=== PATIENT | female | born 1940 | race Caucasian/White ===

== ENCOUNTER 2018-03-25 09:22 | Emergency (ER) | payer OTHER, MEDICARE ==
[2018-03-25 09:39] VITALS: TEMP 98.1; BMI 39.6
--- NOTE | 2018-03-25 09:42 | PDOC ---
History of Present Illness - General Chief Complaint: Shortness of Breath Stated Complaint: SOB (PCP SENT) Time Seen by Provider: 03/25/18 09:42 Past History - Past Medical History Allergies/Adverse Reactions: Allergies Allergy/AdvReac Type Severity Reaction Status Date / Time No Known Allergies Allergy Verified 03/25/18 09:33 Home Medications: Ambulatory Orders Ferrous Sulfate [Feosol] 325 mg PO DAILY #0 ud 08/26/13 Metoprolol Succinate [Toprol XL -] 50 mg PO DAILY #0 tab.sr.24h 08/26/13 Amlodipine Besylate [Norvasc -] 5 mg PO DAILY 06/09/14 Biotin 5,000 mcg PO DAILY 06/09/14 Lutein 6 mg PO DAILY 06/09/14 Magnesium 500 mg PO DAILY 06/09/14 Potassium Chloride [K-Dur] 10 meq PO DAILY 06/09/14 metFORMIN HCL [Glucophage -] 500 mg PO DAILY 06/09/14 Anemia: Yes (during chemo) Asthma: No Cancer: Yes (LUNG AND VULVA) Cardiac Disorders: No CVA: No COPD: No CHF: No DVT: No Dementia: No Diabetes: Yes GI Disorders: No Disorders: Yes (ACUTE ON CHRONIC KIDNEY DISEASE) HTN: Yes Hypercholesterolemia: No Liver Disease: No Seizures: No Thyroid Disease: No Lung CA: Yes - Surgical History Abdominal Surgery: No Appendectomy: No Cardiac Surgery: No Cholecystectomy: No Lung Surgery: Yes (LUNG CA,THORACENTESIS) Neurologic Surgery: No Orthopedic Surgery: No - Immunization History Td Vaccination: Yes TDAP Vaccination: No Immunization Up to Date: Yes - Suicide/Smoking/Psychosocial Hx Smoking Status: Yes Smoking History: Former smoker Years of Tobacco Use: 0 Have you smoked in the past 12 months: No Number of Cigarettes Smoked Daily: 0 If you are a former smoker, when did you quit?: 2000 Cigars Per Day: 0 Information on smoking cessation initiated: No Hx Alcohol Use: No Drug/Substance Use Hx: No Substance Use Type: None Hx Substance Use Treatment: No *Physical Exam - Vital Signs Last Vital Signs Temp Pulse Resp BP Pulse Ox 98.1 F 82 18 150/90 97 03/25/18 09:33 03/25/18 09:33 03/25/18 09:33 03/25/18 09:33 03/25/18 09:33
--- NOTE | 2018-03-25 09:46 | PDOC ---
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 Patient reports acute Gregg x 1 week. Resolved with rest. BL LE swelling for 10+ years. Typically sleeps with 2 pillows at night for many years. Denies associated complaints. Denies F/C, cough, hemoptysis, PND, leg pain, palpitations, diaphoresis, weight loss, night sweats, back pain, N/V, CP, abdominal pain, diarrhea, constipation, urinary complaints, weakness, lightheadedness, sensory changes. Diagnosed with lung cancer ( 2004). No longer receives yearly CT chest. Does not know if ca. in remission. Apt. with Pulmonology Dr. Rodas 05/02/18 PMHx: as noted above. Denies h/o ACS, IN, stent placement, CABG, abnml stress test ( does not recall last stress test ). ROS: as noted above SHx: Tobacco cessation 10 years ago. Denies Etoh, IVDA. Denies recent travel, surgery, prolonged immobilization, or hormonal therapy. PMD: Cesar Allergies: NKDA Past History - Past Medical History Allergies/Adverse Reactions: Allergies Allergy/AdvReac Type Severity Reaction Status Date / Time No Known Allergies Allergy Verified 03/25/18 09:33 Home Medications: Ambulatory Orders Ferrous Sulfate [Feosol] 325 mg PO DAILY #0 ud 08/26/13 Metoprolol Succinate [Toprol XL -] 50 mg PO DAILY #0 tab.sr.24h 08/26/13 Amlodipine Besylate [Norvasc -] 5 mg PO DAILY 06/09/14 Biotin 5,000 mcg PO DAILY 06/09/14 Lutein 6 mg PO DAILY 06/09/14 Magnesium 500 mg PO DAILY 06/09/14 Potassium Chloride [K-Dur] 10 meq PO DAILY 06/09/14 metFORMIN HCL [Glucophage -] 500 mg PO DAILY 06/09/14 Anemia: Yes (during chemo) Asthma: No Cancer: Yes (LUNG AND VULVA) Cardiac Disorders: No CVA: No COPD: No CHF: No DVT: No Dementia: No Diabetes: Yes GI Disorders: No Disorders: Yes (ACUTE ON CHRONIC KIDNEY DISEASE) HTN: Yes Hypercholesterolemia: No Liver Disease: No Seizures: No Thyroid Disease: No Lung CA: Yes - Surgical History Abdominal Surgery: No Appendectomy: No Cardiac Surgery: No Cholecystectomy: No Lung Surgery: Yes (LUNG CA,THORACENTESIS) Neurologic Surgery: No Orthopedic Surgery: No - Immunization History Td Vaccination: Yes TDAP Vaccination: No Immunization Up to Date: Yes - Suicide/Smoking/Psychosocial Hx Smoking Status: Yes Smoking History: Former smoker Years of Tobacco Use: 0 Have you smoked in the past 12 months: No Number of Cigarettes Smoked Daily: 0 If you are a former smoker, when did you quit?: 2000 Cigars Per Day: 0 Information on smoking cessation initiated: No Hx Alcohol Use: No Drug/Substance Use Hx: No Substance Use Type: None Hx Substance Use Treatment: No Review of Systems - Review of Systems Comments:: 03/25/18 09:46 GENERAL/CONSTITUTIONAL: No fever or chills. No weakness. HEAD, EYES, EARS, NOSE AND THROAT: No change in vision. No ear pain or discharge. No sore throat. CARDIOVASCULAR: + SOB. No chest pain. RESPIRATORY: No cough, wheezing, or hemoptysis. GASTROINTESTINAL: No nausea, vomiting, diarrhea or constipation. GENITOURINARY: No dysuria, frequency, or change in urination. MUSCULOSKELETAL: No joint or muscle swelling or pain. No neck or back pain. SKIN: No rash NEUROLOGIC: No headache, vertigo, loss of consciousness, or change in strength/ sensation. ENDOCRINE: No increased thirst. No abnormal weight change HEMATOLOGIC/LYMPHATIC: No anemia, easy bleeding, or history of blood clots. ALLERGIC/IMMUNOLOGIC: No hives or skin allergy. *Physical Exam - Vital Signs Last Vital Signs Temp Pulse Resp BP Pulse Ox 98.1 F 82 18 150/90 97 03/25/18 09:33 03/25/18 09:33 03/25/18 09:33 03/25/18 09:33 03/25/18 09:33 - Physical Exam Comments: 03/25/18 09:46 GENERAL: Awake, alert, and fully oriented, in no acute distress HEAD: No signs of trauma, normocephalic, atraumatic EYES: PERRLA, EOMI, sclera anicteric, conjunctiva clear ENT: Auricles normal inspection, hearing grossly normal, nares patent, oropharynx clear without exudates. Moist mucosa NECK: Normal ROM, supple, no lymphadenopathy, JVD, or masses LUNGS: Diminished lung sounds BL. No distress, speaks full sentences, clear to auscultation bilaterally HEART: Regular rate and rhythm, normal S1 and S2, no murmurs, rubs or gallops, peripheral pulses normal and equal bilaterally. ABDOMEN: Soft, nontender, normoactive bowel sounds. No guarding, no rebound. No masses EXTREMITIES :BL LE edema. Normal inspection, Normal range of motion. No clubbing or cyanosis. NEUROLOGICAL: Cranial nerves II through XII grossly intact. Normal speech, normal gait, no focal sensorimotor deficits SKIN: Warm, Dry, normal turgor, no rashes or lesions noted Heart Score/ECG Review - History History: Slightly suspicious - Electrocardiogram EKG: Normal - Age Age: >/= 65 - Risk Factors Risk Factors Heart Score: Yes Hx Hypercholesterolemia, Yes Hx Hypertension, Yes Hx Diabetes, Yes Smoking History, Yes Positive family hx of cardiac disease Based on the list above the patient has:: >/=3 risk factors or Hx atherosclerotic disease - Troponin Troponin: </= normal limit - Score Heart Score - Total: 4 ED Treatment Course - LABORATORY CBC & Chemistry Diagram: 03/25/18 09:50 03/25/18 09:50 Medical Decision Making - Medical Decision Making 03/25/18 09:49 77 yo F with h/o DM, HTN, vulva 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 ACS/IN r /o. Will consider acute CHF exacerbation, COPD, PNA. PERC Positive PE based on age, but mod risk PE based on Weils criteria. Heart score 4, with 14 % risk MACE. ED Course: CBC,CMP, BNP, Cardiac Pr., PT/INR EKG, CXR 03/25/18 10:18 EKG: NSR with absent MIKE, STD, or TWI. Nml interval duration and axis. 03/25/18 10:41 CXR: Stable R upper lobe mass. Otherwise unremarkable 03/25/18 11:09 BUN/Cr: 25/1.2 03/25/18 12:13 BNP: 145 03/25/18 14:34 CTA: Negative PE. New 7-8 mm Left upper lobe peripheral nodule Patient does not meet inpatient or observation criteria to be admitted to [facility]. Per Dr. Guerrero she is safe for d/c with f/u and return precautions. Sent Proair and Advair to pharmacy. *DC/Admit/Observation/Transfer Diagnosis at time of Disposition: Dyspnea on exertion - Discharge Dispostion Condition at time of disposition: Stable - Referrals Referrals: Mckay Guerrero MD [Primary Care Provider] - - Patient Instructions Printed Discharge Instructions: DI for Shortness of Breath Additional Instructions: Please return to the emergency department with any new or worsening symptoms or concerns. Please follow up with your primary care physician within 72 hours. Please take inhalers as prescribed. - Post Discharge Activity - Attestations Physician Attestion: 03/25/18 15:20 I attest to the information provided in this note.
[2018-03-25 10:13] LABS: BASO % 0.8 % (0-2.0); EOS % 6.1 % (0-4.5); HEMATOCRIT 40.1 % (32.4-45.2); HEMOGLOBIN 13.2 GM/dL (10.7-15.3); LYMPH % 8.3 % (8-40); MCH 26.5 pg (25.7-33.7); MCHC 33.1 g/dl (32.0-36.0); MEAN CELL VOLUME 80.2 fl (80-96); MEAN PLT VOLUME 8.6 fl (7.5-11.1); MONO % 5.9 % (3.8-10.2); NEUT % 78.9 % (42.8-82.8); PLATELET COUNT 256 K/MM3 (134-434); WHITE BLOOD COUNT 7.6 K/mm3 (4.0-10.0)
[2018-03-25 10:26] LABS: PROTHROMBIN TIME (PATIENT) 11.3 SEC (9.7-13.0)
[2018-03-25 10:40] LABS: ALBUMIN 3.4 g/dl (3.4-5.0); ANION GAP 9 (8-16); BLOOD UREA NITROGEN 25 mg/dL (7-18); CALCIUM 8.9 mg/dL (8.5-10.1); CHLORIDE 102 mmol/L (98-107); CO2 27 mmol/L (21-32); CREATININE 1.2 mg/dL (0.55-1.02); GLUCOSE,RANDOM 110 mg/dL (74-106); SGPT/ALT 29 U/L (12-78); SODIUM 138 mmol/L (136-145)
--- NOTE | 2018-03-25 10:42 | PDOC ---
Attending Attestation - Resident Resident Name: Igor Mayorga - HPI HPI: 03/25/18 10:49 Pt presents to the ED complaining of a one week history of shortness of breath. Complains of dyspnea on exertion and orthopnea, both of which are new. Denies chest pain, cough or fever. 03/25/18 10:49 - Physicial Exam PE: 03/25/18 10:50 Agree with residetn exam. Patient is in no acute distress, but does have some conversational dyspnea. + decreased breath sounds bilaterally. - Medical Decision Making 03/25/18 10:51 Pt presents to the ED complaining of shortness of breath, ELIZONDO and orthopnea. Differential includes new onset CHF, PE, less likely PNA or pleural effusion, ACS. Will check labs and CXR, reassess. Will consider CT PE if work up is negative for CHF.
[2018-03-25 10:43] LABS: ALK PHOS 60 U/L (45-117); BILIRUBIN,TOTAL 0.7 mg/dL (0.2-1.0); TOT PROT 7.5 g/dl (6.4-8.2)
[2018-03-25 10:48] LABS: POTASSIUM 4.9 mmol/L (3.5-5.1)
[2018-03-25 10:49] LABS: SGOT/AST 59 U/L (15-37)
[2018-03-25 11:56] LABS: N-TERMINAL BNP 145.47 pg/ml (5-450)
--- NOTE | 2018-03-25 12:10 | EKG ---
Test Reason : Blood Pressure : / mmHG Vent. Rate : 084 BPM Atrial Rate : 084 BPM P-R Int : 142 ms QRS Dur : 084 ms QT Int : 384 ms P-R-T Axes : 075 043 057 degrees QTc Int : 453 ms NORMAL SINUS RHYTHM NORMAL ECG WHEN COMPARED WITH ECG OF 22-AUG-2013 13:21, NO SIGNIFICANT CHANGE WAS FOUND Confirmed by MD FERNANDEZ GREGORY ([id number]) on 03/25/2018 12:10:24 PM Referred By: Confirmed By:ELAINE FERNANDEZ MD
[2018-03-25] MEDS ORDERED: SODIUM CHLORIDE 1,000 ML IV STA (12:14)
--- NOTE | 2018-03-25 15:18 | CONSULT ---
Consult Consult Specialty:: IM Referred by:: ER Reason for Consultation:: Evaluation for admission - History of Present Illness Chief Complaint: I'm short of breath History of Present Illness: Ms Jay is a very pleasant 77 year old female who comes in with dyspnea on exertion. She says it began 1 week ago. It started slow and has steadily increased. She now says she can only walk minimal distances without becoming short of breath. She is not short of breath at rest. Aside from this she is without complaint. She denies fevers, chills, lightheadedness, dizziness, passing out, chest pain or pressure, palpitations, fluttering, orthopnea, coughing, wheezing, nausea, vomiting, abdominal pain, constipation, diarrhea, difficulty or pain on urination, or swelling. - History Source History Provided By: Patient Limitations to Obtaining History: No Limitations - Past Medical History Cardio/Vascular: Yes: HTN - Past Surgical History Past Surgical History: Yes: None - Alcohol/Substance Use Hx Alcohol Use: No - Smoking History Smoking history: Former smoker Have you smoked in the past 12 months: No Aproximately how many cigarettes per day: 0 If you are a former smoker, when did you quit?: 2000 - Social History ADL: Independent Place of : [facility] History of Recent Travel: No Home Medications - Allergies Allergies/Adverse Reactions: Allergies Allergy/AdvReac Type Severity Reaction Status Date / Time No Known Allergies Allergy Verified 03/25/18 09:33 - Home Medications Home Medications: Ambulatory Orders Ferrous Sulfate [Feosol] 325 mg PO DAILY #0 ud 08/26/13 Metoprolol Succinate [Toprol XL -] 50 mg PO DAILY #0 tab.sr.24h 08/26/13 Amlodipine Besylate [Norvasc -] 5 mg PO DAILY 06/09/14 Biotin 5,000 mcg PO DAILY 06/09/14 Lutein 6 mg PO DAILY 06/09/14 Magnesium 500 mg PO DAILY 06/09/14 Potassium Chloride [K-Dur] 10 meq PO DAILY 06/09/14 metFORMIN HCL [Glucophage -] 500 mg PO DAILY 06/09/14 Albuterol Sulfate [Proair Hfa] 8.5 gm IH Q4HWA PRN #14 hfa.aer.ad 03/25/18 Salmeterol/Fluticasone [Advair 100Mcg/50Mcg -] 1 inh PO BID #1 diskus 03/25/18 Family Disease History - Family Disease History Family Disease History: Respiratory: Brother (COPD) Review of Systems Findings/Remarks: Full review of systems obtained, as per HPI and otherwise negative. Physical Exam Vital Signs: Vital Signs Temperature 36.7 C 03/25/18 09:33 Pulse Rate 87 03/25/18 09:55 Respiratory Rate 18 03/25/18 09:33 Blood Pressure 150/90 03/25/18 09:33 O2 Sat by Pulse Oximetry (%) 97 03/25/18 09:55 Constitutional: Yes: No Distress, Calm, Obese Eyes: Yes: Conjunctiva Clear, EOM Intact, PERRL HENT: Yes: Atraumatic, Normocephalic Cardiovascular: Yes: Regular Rate and Rhythm. No: Gallop, Murmur, Rub Respiratory: Yes: Regular, CTA Bilaterally. No: Rales, Rhonchi, Wheezes Gastrointestinal: Yes: Normal Bowel Sounds, Soft. No: Distention, Tenderness Extremities: Yes: WNL Edema: No Labs: CBC, BMP 03/25/18 09:50 03/25/18 09:50 Imaging - Results Chest X-ray: Report Reviewed, Image Reviewed Cat Scan: Report Reviewed Problem List - Problems (1) HTN (hypertension) Code(s): I10 - ESSENTIAL (PRIMARY) HYPERTENSION (2) Dyspnea on exertion Code(s): R06.09 - OTHER FORMS OF DYSPNEA Assessment/Plan -evaluated patient in the ED -vital signs stable, not requiring oxygen -chest x-ray and CT scan PE protocol unchanged -labs WNL except creatinine which is at baseline -case d/w patient, at this point does not need hospitalization -instructed ER physician to discharge on advair and albuterol -close follow up with Dr Guerrero -has appointment for pulmonary -if does not improve with advair and albuterol, will need admission for evaluation as will have failed outpatient therapy -patient made aware of plan and is agreeable
[2018-03-25 15:20] LABS: URINE APPEARANCE CLOUDY; URINE BILIRUBIN NEGATIVE (<2.0 mg/dL); URINE BLOOD NEGATIVE (NEGATIVE); URINE COLOR YELLOW; URINE GLUCOSE (UA) NEGATIVE (NEGATIVE); URINE KETONE NEGATIVE (NEGATIVE); URINE LEUK ESTERASE NEGATIVE (NEGATIVE); URINE NITRITE NEGATIVE (NEGATIVE); URINE PROTEIN NEGATIVE (NEGATIVE); URINE UROBILINOGEN NEGATIVE mg/dL (0.2-1.0)
[2018-03-25 15:34] VITALS: BP 135/76; PULSE 91
== END 2018-03-25 15:43 | disposition home or self-care (01) ==
LOC: JER 09:22
PROC: 3E0337Z Introduction of Electrolytic and Water Balance Substance into Peripheral Vein, Percutaneous Approach (ICD-10-PCS; principal; 2018-03-25)
DX: R06.00 Dyspnea, unspecified (principal); Z92.21 Personal history of antineoplastic chemotherapy; E11.9 Type 2 diabetes mellitus without complications; I10 Essential (primary) hypertension; Z85.118 Personal history of other malignant neoplasm of bronchus and lung
CPT/HCPCS: 36415; 71045-TC-FY; 71275-TC; 80053; 81003; 82550; 83880; 84484; 85025; 85610; 93005; 93010; 96360; 99284-25; J7030